=== PATIENT | female | born 1965 | race Caucasian/White ===

== ENCOUNTER 2016-07-11 03:50 | Emergency (ER) | payer MEDICAID ==
[2016-07-11 04:57] LABS: BASOPHIL % 0.5 % (0-2); PLATELET COUNT 233 x10^3mcL (130-400)
[2016-07-11 04:58] LABS: RED CELL DISTRIBUTION WIDTH 15.7 % (11.5-14.5)
[2016-07-11 05:07] LABS: CALCIUM 8.6 mg/dL (8.5-10.1); CARBON DIOXIDE 29.2 mmol/L (21-32); CHLORIDE SERUM 104 mmol/L (98-107); CREATININE SERUM 0.7 mg/dL (0.6-1.0); GFR1 > 60 mL/min; GLUCOSE SERUM 96 mg/dL (74-106); POTASSIUM SERUM 3.7 mmol/L (3.5-5.1); SODIUM SERUM 141 mmol/L (136-145)
[2016-07-11 05:12] LABS: ALBUMIN 3.4 g/dL (3.4-5.0); ALKALINE PHOSPHATASE 52 U/L (46-116); ALT/SGPT 22 U/L (14-59); AMYLASE 55 U/L (25-115); AST/SGOT 16 U/L (15-37); BILIRUBIN TOTAL 0.35 mg/dL (0.20-1.00); LIPASE 129 IU/L (73-393); TOTAL PROTEIN, SERUM 6.8 g/dL (6.4-8.2)
[2016-07-11 08:37] VITALS: BP 150/73
== END 2016-07-11 08:37 | disposition home or self-care (01) ==
LOC: ED 03:50
PROVIDERS: Emergency Medicine
DX: R10.11 Right upper quadrant pain (principal)
CPT/HCPCS: 83880; J1885; Q0092

== ENCOUNTER 2017-01-28 09:12 | Emergency (ER) | payer MEDICAID ==
[2017-01-28 11:08] LABS: UA SPECIFIC GRAVITY <=1.005 (1.005-1.035); microscopic required? YES; urine erythrocyte 1+ (NEGATIVE)
[2017-01-28 13:04] VITALS: BP 180/100
== END 2017-01-28 13:04 | disposition home or self-care (01) ==
LOC: ED 09:12
PROVIDERS: Emergency Medicine
DX: M54.5 Low back pain (principal); Z88.0 Allergy status to penicillin; I10 Essential (primary) hypertension; Z88.1 Allergy status to other antibiotic agents
CPT/HCPCS: J1885